=== PATIENT | male | born 1955 | race Caucasian/White ===

== ENCOUNTER 2022-07-23 12:16 | Inpatient (IN) | payer MEDICARE, BC ==
[~2022-07-23] VITALS: Ht 175.3 cm; Wt 90.7 kg
[2022-07-23 20:00] VITALS: BP 136/80
[2022-07-23] MEDS ORDERED: ACETAMINOPHEN 500 MG TABLET PO PRN (20:45)
[2022-07-23] MEDS ORDERED: MELATONIN 3 MG TABLET PO PRN (20:45)
[2022-07-23 21:00] VITALS: BP 136/80
[2022-07-23] MEDS: ATORVASTATIN CALCIUM 40 MG TABLET PO SCH (22:03)
[2022-07-23] MEDS: APIXABAN 5 MG TABLET PO SCH (22:03)
[2022-07-23] MEDS: ETHYL ALCOHOL 62% ANTISEPTIC NASAL SANITIZER 0.6 ML AMPUL NASAL SCH (22:19)
[2022-07-24] MEDS ORDERED: SODIUM CHLORIDE 0.9% 100 ML ONE (01:23)
[2022-07-24] MEDS: CeFAZolin 2 GM/DEXTROSE 50 ML IV SCH ×3 (03:08→19:42)
[2022-07-24 07:33] LABS: BASOPHILS % (AUTO) 0.7 % (0.0-2.0); EOSINOPHILS % (AUTO) 5.1 % (1.0-6.0); HEMOGLOBIN 13.8 g/dL (13.5-17.5); LYMPHOCYTES # (AUTO) 1.7 K/uL (1.0-4.8); LYMPHOCYTES % (AUTO) 23.1 % (22.0-44.0); MEAN CORPUSCULAR HEMOGLOBIN 31.9 pg (26.0-34.0); MEAN CORPUSCULAR HGB CONC 32.9 G/dL (31.0-37.0); MEAN CORPUSCULAR VOLUME 97 fL (80-100); MONOCYTES % (AUTO) 13.4 % (2.0-9.0); NEUTROPHILS # (AUTO) 4.4 K/uL (1.8-7.7); NEUTROPHILS % (AUTO) 57.7 % (40.0-70.0); PLATELET COUNT (AUTO) 286 K/uL (150-450); RED BLOOD CELL COUNT(AUTO) 4.34 MIL/uL (4.50-5.90); RED CELL DISTRIBUTION WIDTH 12.2 % (11.5-14.5)
[2022-07-24 07:51] LABS: ALANINE AMINOTRANSFERASE 26 U/L (12-78); ALBUMIN 2.9 g/dL (3.4-5.0); ALKALINE PHOSPHATASE 71 U/L (46-116); ANION GAP 9 mmol/L (8-16); ASPARTATE AMINOTRANSFERASE 23 U/L (15-37); BILIRUBIN,TOTAL 0.3 mg/dL (0.1-1.0); CALCIUM, TOTAL 8.7 mg/dL (8.8-10.5); CARBON DIOXIDE 28 mmol/L (22-29); CHLORIDE 103 mmol/L (98-107); CREATININE 1.08 mg/dL (0.60-1.30); GLOMERULAR FILTR. RATE CALC > 60 mL/min (>60); GLUCOSE,RANDOM 97 mg/dL (70-110); POTASSIUM 3.9 mmol/L (3.5-5.1); SODIUM SERUM 140 mmol/L (136-145); TOTAL PROTEIN, SERUM 6.5 g/dL (6.4-8.2); UREA NITROGEN, BLOOD 14 mg/dL (7-18)
[2022-07-24 08:05] VITALS: BP 138/74
[2022-07-24] MEDS: MULTIVITAMINS WITH MINERALS, THERAPEUTIC TABLET PO SCH (09:11)
[2022-07-24] MEDS: AMIODARONE HCL 200 MG TABLET PO SCH (09:12)
[2022-07-24] MEDS: APIXABAN 5 MG TABLET PO SCH ×2 (09:12→20:38)
[2022-07-24] MEDS: ETHYL ALCOHOL 62% ANTISEPTIC NASAL SANITIZER 0.6 ML AMPUL NASAL SCH ×2 (09:12→20:38)
[2022-07-24] MEDS ORDERED: SODIUM CHLORIDE 0.9% 250 ML IV ONE (14:09)
[2022-07-24 20:00] VITALS: BP 141/69
[2022-07-24] MEDS: ATORVASTATIN CALCIUM 40 MG TABLET PO SCH (20:38)
[2022-07-24] MEDS ORDERED: ETHYL ALCOHOL 62% ANTISEPTIC NASAL SANITIZER 0.6 ML AMPUL NASAL SCH (21:00)
[2022-07-25] MEDS: CeFAZolin 2 GM/DEXTROSE 50 ML IV SCH ×3 (03:15→19:09)
[2022-07-25] MEDS ORDERED: ZINC220C14 PO (03:33)
[2022-07-25] MEDS ORDERED: MULT-248 PO (03:33)
[2022-07-25] MEDS ORDERED: CHOL200059 PO (03:33)
[2022-07-25 08:15] VITALS: BP 106/55
[2022-07-25] MEDS: ETHYL ALCOHOL 62% ANTISEPTIC NASAL SANITIZER 0.6 ML AMPUL NASAL SCH ×2 (09:31→20:15)
[2022-07-25] MEDS: AMIODARONE HCL 200 MG TABLET PO SCH (09:31)
[2022-07-25] MEDS: APIXABAN 5 MG TABLET PO SCH ×2 (09:31→20:15)
[2022-07-25] MEDS ORDERED: SODIUM CHLORIDE 0.9% 250 ML IV ONE (12:31)
[2022-07-25] MEDS: ACETAMINOPHEN 325 MG TABLET PO PRN ×2 (12:34→20:14)
[2022-07-25] MEDS: DICLOFENAC SODIUM 1% 100 GM GEL [4GM] TP SCH ×2 (14:54→20:15)
[2022-07-25 20:14] VITALS: BP 149/72
[2022-07-25] MEDS: ATORVASTATIN CALCIUM 40 MG TABLET PO SCH (20:15)
[2022-07-25 20:35] VITALS: BP 149/72
[2022-07-26] MEDS: CeFAZolin 2 GM/DEXTROSE 50 ML IV SCH ×3 (02:33→18:17)
[2022-07-26 08:00] VITALS: BP 134/62
[2022-07-26 08:01] LABS: C-REACTIVE PROTEIN QUANT 4.68 mg/dL (0.00-0.30); CHOL/HDL RATIO 2.3 (4.2-7.3)
[2022-07-26 08:11] LABS: URIC ACID 5.5 mg/dL (2.6-7.2)
[2022-07-26] MEDS: ETHYL ALCOHOL 62% ANTISEPTIC NASAL SANITIZER 0.6 ML AMPUL NASAL SCH ×2 (08:14→20:03)
[2022-07-26] MEDS: APIXABAN 5 MG TABLET PO SCH ×2 (08:15→20:04)
[2022-07-26] MEDS: AMIODARONE HCL 200 MG TABLET PO SCH (08:15)
[2022-07-26] MEDS: DICLOFENAC SODIUM 1% 100 GM GEL [4GM] TP SCH ×3 (08:16→20:04)
[2022-07-26] MEDS: MULTIVITAMINS WITH MINERALS, THERAPEUTIC TABLET PO SCH (08:16)
[2022-07-26] MEDS: ACETAMINOPHEN 325 MG TABLET PO PRN ×2 (13:32→20:04)
[2022-07-26 20:04] VITALS: BP 150/66
[2022-07-26] MEDS: ATORVASTATIN CALCIUM 40 MG TABLET PO SCH (20:04)
[2022-07-27] MEDS: CeFAZolin 2 GM/DEXTROSE 50 ML IV SCH ×3 (03:17→18:21)
[2022-07-27 08:00] VITALS: BP 132/71
[2022-07-27] MEDS: AMIODARONE HCL 200 MG TABLET PO SCH (08:01)
[2022-07-27] MEDS: APIXABAN 5 MG TABLET PO SCH ×2 (08:01→20:56)
[2022-07-27] MEDS: ETHYL ALCOHOL 62% ANTISEPTIC NASAL SANITIZER 0.6 ML AMPUL NASAL SCH ×2 (08:01→20:56)
[2022-07-27] MEDS: DICLOFENAC SODIUM 1% 100 GM GEL [4GM] TP SCH ×3 (08:01→20:57)
[2022-07-27] MEDS: ACETAMINOPHEN 325 MG TABLET PO PRN ×2 (15:09→20:59)
[2022-07-27] MEDS: ATORVASTATIN CALCIUM 40 MG TABLET PO SCH (20:56)
[2022-07-27 20:59] VITALS: BP 144/67
[2022-07-27 21:00] VITALS: BP 144/67
[2022-07-28] MEDS: CeFAZolin 2 GM/DEXTROSE 50 ML IV SCH ×3 (03:40→19:43)
[2022-07-28 08:00] VITALS: BP 133/59
[2022-07-28] MEDS: ETHYL ALCOHOL 62% ANTISEPTIC NASAL SANITIZER 0.6 ML AMPUL NASAL SCH ×2 (08:38→21:31)
[2022-07-28] MEDS: DICLOFENAC SODIUM 1% 100 GM GEL [4GM] TP SCH ×3 (08:38→21:31)
[2022-07-28] MEDS: APIXABAN 5 MG TABLET PO SCH ×2 (08:38→21:31)
[2022-07-28] MEDS: MULTIVITAMINS WITH MINERALS, THERAPEUTIC TABLET PO SCH (08:38)
[2022-07-28] MEDS: AMIODARONE HCL 200 MG TABLET PO SCH (08:38)
[2022-07-28] MEDS: ACETAMINOPHEN 325 MG TABLET PO PRN ×3 (08:41→18:29)
[2022-07-28 09:30] VITALS: BP 133/59
[2022-07-28] MEDS: ATORVASTATIN CALCIUM 40 MG TABLET PO SCH (21:31)
[2022-07-28 21:55] VITALS: BP 157/75
[2022-07-29] MEDS: CeFAZolin 2 GM/DEXTROSE 50 ML IV SCH ×3 (02:15→18:57)
[2022-07-29 08:05] VITALS: BP 129/63
[2022-07-29] MEDS ORDERED: MULT-1239 PO (09:09)
[2022-07-29] MEDS ORDERED: APIX5TAB PO (09:09)
[2022-07-29] MEDS ORDERED: ATOR40TA71 PO (09:09)
[2022-07-29] MEDS ORDERED: AMIO200 PO (09:09)
[2022-07-29] MEDS: AMIODARONE HCL 200 MG TABLET PO SCH (09:26)
[2022-07-29] MEDS: ACETAMINOPHEN 325 MG TABLET PO PRN ×2 (09:27→14:52)
[2022-07-29] MEDS: ETHYL ALCOHOL 62% ANTISEPTIC NASAL SANITIZER 0.6 ML AMPUL NASAL SCH ×2 (09:27→21:23)
[2022-07-29] MEDS: APIXABAN 5 MG TABLET PO SCH ×2 (09:27→21:23)
[2022-07-29] MEDS: DICLOFENAC SODIUM 1% 100 GM GEL [4GM] TP SCH ×3 (09:28→21:23)
[2022-07-29 21:00] VITALS: BP 157/94
[2022-07-29] MEDS: ATORVASTATIN CALCIUM 40 MG TABLET PO SCH (21:23)
[2022-07-30] MEDS: CeFAZolin 2 GM/DEXTROSE 50 ML IV SCH ×3 (03:24→18:22)
[2022-07-30 08:00] VITALS: BP 144/73
[2022-07-30] MEDS: AMIODARONE HCL 200 MG TABLET PO SCH (08:13)
[2022-07-30] MEDS: APIXABAN 5 MG TABLET PO SCH ×2 (08:13→20:42)
[2022-07-30] MEDS: ETHYL ALCOHOL 62% ANTISEPTIC NASAL SANITIZER 0.6 ML AMPUL NASAL SCH ×2 (08:13→20:42)
[2022-07-30] MEDS: DICLOFENAC SODIUM 1% 100 GM GEL [4GM] TP SCH ×3 (08:14→20:42)
[2022-07-30] MEDS: ACETAMINOPHEN 325 MG TABLET PO PRN (08:14)
[2022-07-30 20:20] VITALS: BP 127/68
[2022-07-30] MEDS: ATORVASTATIN CALCIUM 40 MG TABLET PO SCH (20:42)
[2022-07-31] MEDS: CeFAZolin 2 GM/DEXTROSE 50 ML IV SCH ×2 (02:33→10:42)
[2022-07-31 07:55] VITALS: BP 130/77
[2022-07-31] MEDS: APIXABAN 5 MG TABLET PO SCH (08:50)
[2022-07-31] MEDS: ETHYL ALCOHOL 62% ANTISEPTIC NASAL SANITIZER 0.6 ML AMPUL NASAL SCH (08:50)
[2022-07-31] MEDS: AMIODARONE HCL 200 MG TABLET PO SCH (08:50)
[2022-07-31] MEDS: MULTIVITAMINS WITH MINERALS, THERAPEUTIC TABLET PO SCH (08:50)
[2022-07-31] MEDS: DICLOFENAC SODIUM 1% 100 GM GEL [4GM] TP SCH (08:52)
[2022-07-31 09:00] VITALS: BP 130/77
== END 2022-07-31 11:35 | disposition home or self-care (01) | DRG 56 ==
LOC: 2WR 19:25
PROVIDERS: ADMIT Physical Medicine & Rehabilitation; ATTEND Physical Medicine & Rehabilitation
DX: G81.94 Hemiplegia, unspecified affecting left nondominant side (principal); I63.411 Cerebral infarction due to embolism of right middle cerebral artery; E46 Unspecified protein-calorie malnutrition; L03.113 Cellulitis of right upper limb; L03.114 Cellulitis of left upper limb; G25.0 Essential tremor; I10 Essential (primary) hypertension; I48.0 Paroxysmal atrial fibrillation; R29.810 Facial weakness; R47.1 Dysarthria and anarthria; F10.10 Alcohol abuse, uncomplicated; M25.562 Pain in left knee; R00.1 Bradycardia, unspecified; M10.9 Gout, unspecified; E78.5 Hyperlipidemia, unspecified; M79.639 Pain in unspecified forearm; M79.671 Pain in right foot; Z68.29 Body mass index [BMI] 29.0-29.9, adult; Z79.899 Other long term (current) drug therapy
CPT/HCPCS: 80053; 80061; 84550; 85025; 86140; 87081; 92507; 92523; 97110; 97112; 97116; 97150; 97163; 97166; 97530; 97535; 99366; J0690; J7050